=== PATIENT | female | born 2000 | race Hispanic/Latino ===

== ENCOUNTER 2021-03-04 08:44 | Inpatient (IN) | payer OTHER ==
[2021-03-04] MEDS ORDERED: Ringers Lactate 1,000 ML IV PRN (09:28)
[2021-03-04] MEDS ORDERED: METHYLERGONOVINE 0.2MG/ML AMP IM PRN (09:28)
--- OUTSIDE RECORDS SUMMARY | 2021-03-04 09:38 | XMS REPORT | Continuity of Care Document ---
:2000 Author Organization [facility] t Address [address] [place] [address] Care Team Providers Name Role Phone Nilton WILLOUGHBY Attending Clinician MAURY Attending Clinician Unavailable Lab, Fam Pob I Attending Clinician Unavailable Crystalne MANAGER SQL Attending Clinician Nicholas JORGENSEN Attending Clinician NEVAEH Attending Clinician Unavailable Payers Payer Name Policy Type Policy Number Effective Date Expiration Date Evens GUZMAN - [id number] 2019 00:00:00 [facility] [id number] [facility] COVID19 HRSA [id number] Problems Condition Condition Condition Status Onset Resolution Last Treating Co mments Source Name Details Category Date Date Treatment Clinician Date Pain in Pain in Disease Active 2019-03 [facility] joint joint 04-03 Ewa Gentry 00:00: of 00 Medicin e Allergies, Adverse Reactions, Alerts Allergy Allergy Status Severity Reaction(s) Onset Inactive Treating Comm ents Source Name Type Date Date Clinician NO KNOWN Drug Active [facility] ALLERGIE [facility] [place] [facility] Family History Family Member Diagnosis Comments Start Date Stop Date Source Sibling Family history of [facility] [place] thyroid disease Physician s Mother Family history of [facility] [place] diabetes mellitus Physici ans Mother Family history of [facility] [place] rheumatoid arthritis Phys icians Social History Social Habit Start Date Stop Date Quantity Comments Source Exposure to Not sure [facility] Colle audrey of SARS-CoV-2 (event) Medici ne Tobacco use and 2020-02-07 2020-02-07 Never used [facility] Co llege of exposure 00:00:00 00:00:00 Medicine Sex Assigned At [birth year] [facility] llege of 00:00:00 00:00:00 Medicine Smoking Status Start Date Stop Date Source Unknown if ever smoked [facility] Never smoker [facility] o f Medicine Medications Ordered Filled Start Stop Current Ordering Indication Dosage Frequency Signature Comments Components Source Medication Medication Date Date Medication? Clinician (SIG) Name Name norgestimat 2019-03 Yes [id number] TAKE 1 Calin e-ethinyl 1-16 TABLET BY Colle ge estradiol 00:00: MOUTH of (FEMYNOR) 00 EVERY DAY Medic in 0.25-35 e MG-MCG per tablet medroxyPROG Yes INJECT 1ML Univers ESTERone 08-30 INTRAMUSCU ity o f 150 mg/mL 00:00[place] syringe 00 Medical DIRECTED Branch medroxyPROG 2020- No INJECT 1ML [facility] ESTERone 08-30 INTRAMUSCU Krystina ege Acetate 00:00: 00:00 LARLY ONCE of (DEPO-PROVE 00 :00 Medicin RA) 150 DIRECTED e MG/ML Syringe nitrofurant Yes [id number] 100mg Take 1 Cap Calin oin, 6-02 by mouth Ewa Gentry macrocrysta 00:00: two times o f l-monohydra 00 daily. Medici n te, e (MACROBID) 100 MG capsule medroxyPROG 2020- No [id number] 150mg Inject 1 Calin ESTERone 6- 06-03 mL into Ewa Gentry (DEPO-PROVE 00:00: 04:59 the muscle of RA) 150 00 :00 once for 1 Medici n MG/ML dose. e injection Inject once every three months norgestimat Yes [id number] TAKE 1 [facility] e-ethinyl 3-02 TABLET BY Colle ge estradiol 00:00: MOUTH of (FEMYNOR) 00 EVERY DAY Medic in 0.25-35 e MG-MCG per tablet norgestimat 2019- Yes [id number] TAKE 1 [facility] e-ethinyl 3-02 TABLET BY Colle ge estradiol 00:00: MOUTH of (FEMYNOR) 00 EVERY DAY Medic in 0.25-35 e MG-MCG per tablet norgestimat 2020- No [id number] TAKE 1 [facility] e-ethinyl 3-05 04-16 TABLET BY Krystina ege estradiol 00:00: 00:00 MOUTH of (FEMYNOR) 00 :00 EVERY DAY Medic in 0.25-35 e MG-MCG per tablet norgestimat 2020- No TAKE 1 [facility] e-ethinyl 3- 08-14 TABLET BY ity of estradiol 00:00: 00:00 MOUTH [place] 0.25-35 00 :00 EVERY DAY Medical mg-mcg per Branch tablet FEMYNOR 2018-03 2020- No TAKE 1 Calin 0.25-35 2-10 05-23 TABLET BY Ira e MG-MCG per 00:00: 00:00 MOUTH of tablet 00 :00 EVERY DAY Medicin e Macrobid Macrobid 2019- No Ro 1 capsule Ekaterina 10-14 [place] [facility] 00:00: 00:00 00 :00 Immunizations Ordered Immunization Filled Immunization Date Status Commen ts Source Name Name Influenza Quad-PF 2020-02-07 Completed [facility] 00:00:00 of Medicine Fluarix 0.5 ml Fluarix 0.5 ml 2018-05-22 Nelda zhang quadrivalent- quadrivalent- 00:00:00 preservative free preservative free Influenza Quad-PF 2018-05-22 Completed [facility] 00:00:00 of Medicine Vital Signs Vital Name Observation Time Observation Value Comments Source Systolic blood 2020-02-07 114 mm[Hg] [facility] Darielag e pressure 20:32:00 of Medicine Diastolic blood 2020-02-07 62 mm[Hg] [facility] Dariela ge pressure 20:32:00 of Medicine Heart rate 2020-02-07 71 /min [facility] 20:32:00 of Medicine Body height 2020-02-07 157.5 cm [facility] 20:32:00 of Medicine Body weight 2020-02-07 61.236 kg [facility] 20:32:00 of Medicine BMI 2020-02-07 24.69 kg/m2 [facility] 20:32:00 of Medicine Oxygen saturation 2020-02-07 98 /min [facility] lege in Arterial blood 20:32:00 of Medicin e by Pulse oximetry Systolic blood 2019-08-24 100 mm[Hg] [facility] Colleg e pressure 18:21:00 of Medicine Diastolic blood 2019-08-24 62 mm[Hg] [facility] Colle ge pressure 18:21:00 of Medicine Heart rate 2019-08-24 68 /min [facility] 18:21:00 of Medicine Body temperature 2019-08-24 36.94 Trice [facility] Krystina ege 18:21:00 of Medicine Respiratory rate 2019-08-24 16 /min [facility] Krystina ege 18:21:00 of Medicine Body height 2019-08-24 157.5 cm [facility] 18:21:00 of Medicine Body weight 2019-08-24 64.683 kg [facility] 18:21:00 of Medicine BMI 2019-08-24 26.08 kg/m2 [facility] 18:21:00 of Medicine Oxygen saturation 2019-08-24 98 /min [facility] Col lege in Arterial blood 18:21:00 of Medicin e by Pulse oximetry Systolic blood 2019-05-24 94 mm[Hg] [facility] Colleg e pressure 20:09:00 of Medicine Diastolic blood 2019-05-24 60 mm[Hg] [facility] Colle ge pressure 20:09:00 of Medicine Heart rate 2019-05-24 49 /min [facility] 20:09:00 of Medicine Body temperature 2019-05-24 37 Trice [facility] Krystina ege 20:09:00 of Medicine Body height 2019-05-24 157.5 cm [facility] 20:09:00 of Medicine Body weight 2019-05-24 61.961 kg [facility] 20:09:00 of Medicine BMI 2019-05-24 24.98 kg/m2 [facility] 20:09:00 of Medicine Oxygen saturation 2019-05-24 99 /min [facility] Col lege in Arterial blood 20:09:00 of Medicin e by Pulse oximetry BP Systolic 2017-08-13 103 mm[Hg] [facility] 12:58:00 [place] Physician s BP Diastolic 2017-08-13 65 mm[Hg] [facility] 12:58:00 [place] Physician s Height 2017-08-13 157 cm [facility] 12:58:00 [place] Physician s Weight 2017-08-13 58.45 kg [facility] 12:58:00 [place] Physician s Body Mass Index 2017-08-13 23.71 kg/m2 [place] o f Calculated 12:58:00 [place] Physician s Temperature 2017-08-13 98.6 [degF] Method: [facility] 12:58:00 Tympanic [place] Physician s Heart Rate 2017-08-13 74 /min [facility] 12:58:00 [place] Physician s Respiration Rate 2017-08-13 18 /min Quality: Normal Universi ty of 12:58:00 [place] Physician s O2 SAT 2017-08-13 99 % Source: [facility] 12:58:00 [place] Physician s Procedures Procedure Date / Time Performing Clinician Source Performed TSH 2020-02-07 [facility] 2020-02-07 [facility] 2020-02-07 [facility]INAL[facility] DIPSTICK 2019-08-24 00:00:00 [facility] POCT URINE 2019-08-24 00:00:00 [facility] POCT URINE 2019-05-24 00:00:00 [facility] [QL] CBC (INCLUDES 2017-08-13 00:00:00 [facility] DIFF/PLT) Physicians [QL] CMP W/EGFR 2017-08-13 00:00:00 [facility] Physicians [QL] COMPLEMENT 2017-08-13 00:00:00 [facility] COMPONENT C3C Physicians [QL] COMPLEMENT 2017-08-13 00:00:00 [facility] COMPONENT C4C Physicians [QL] C-REACTIVE PROTEIN 2017-08-13 00:00:[address] [facility] Physicians [QL] RHEUMATOID FACTOR 2017-08-13 00:00:[address] [facility] Physicians [QL] URINALYSIS, 2017-08-13 00:00:00 [facility] COMPLETE W/REFLEX TO Physicians CULTURE [QL] ELSA PANEL, 2017-08-13 00:00:00 [facility] COMPREHENSIVE Physicians [QL] SED RATE BY 2017-08-13 00:00:00 [facility] MODIFIED SLAVA Physicians Plan of Care Planned Activity Planned Date Details Comments Source Future Scheduled HIV AB/AG 4TH GEN W Ordered: [facility] or Ewa Gentry Test RFLX [code = 29330-0] 05/24/2019 of Med icine Future Scheduled HEPATITIS C ANTIBODY Ordered: [facility] Test [code = 51957-2] 05/24/2019 of Medicine Future Scheduled HEPATITIS B SURFACE Ordered: [facility] or Ewa Gentry Test ANTIGEN [code = 05/24/2019 of Medicine 5196-1] Future Scheduled CT/GC Ordered: [facility] Krystina ege Test JOCY/TMA,CERVICAL/URETH 05/24/2019 of Me dicine RAL AND URINE [code = NOCPT] Future Scheduled RPR(DIAG) W RFLX Ordered: [facility] Test TITER/CONF [code = 05/24/2019 [place] [address]-8] Future Scheduled CBC W/AUTO DIFF WITH Ordered: [facility] Test PLATELETS [code = 05/24/2019 of Medicin e 24707-9] Future Scheduled COMPREHENSIVE Ordered: [facility] Col lege Test METABOLIC PANEL [code 05/24/2019 of Med icine = 05368-3] Future Scheduled TSH REFLEX TO FREE T4 Ordered: [facility] College Test [code = 3016-3] 05/24/2019 of Medicine Future Scheduled HEMOGLOBIN A1C [code = Ordered: [facility] Test 4548-4] 05/24/2019 of Medicine Future Scheduled TETANUS SHOT (ADULT) [place] [employer] Test [code = TETANUS SHOT of Medi cine (ADULT)] Future Scheduled HIV SCREENING [code = [facility] [employer] [employer] [facility] HIV SCREENING] of Medicine Future Scheduled FLU VACCINE > 6 MONTHS [facility] Test [code = FLU VACCINE > of Med icine 6 MONTHS] Future Scheduled URINE CULTURE [code = Ordered: [facility] Test 630-4] 08/24/2019 of Medicine Future Scheduled TETANUS SHOT (ADULT) [employer] [employer] Test [code = TETANUS SHOT of Medi cine (ADULT)] Future Scheduled BMI FOLLOW UP PLAN [facility] College Test [code = BMI FOLLOW UP of Med icine PLAN] Future Scheduled FLU VACCINE > 6 MONTHS [facility] Test [code = FLU VACCINE > of Med icine 6 MONTHS] Future Scheduled HPV VACCINE (1 - [facility] Test 2-dose series) [code = of Me dicine HPV VACCINE (1 - 2-dose series)] Future Scheduled TETANUS SHOT (ADULT) [employer] [employer] Test [code = TETANUS SHOT of Medi cine (ADULT)] Encounters Start End Encounter Admission Attending Care Care Encounter Source Date/Time Date/Time Type Type Clinicians Facility Department ID 2020-07-18 2020-07-18 Outpatient [facility] [id number] [facility] 09:51:56 14:37:41 Ira [place] of Medicin e 2020-02-07 2020-02-07 Office CallawaySHANNON mccollum [id number] [facility] 14:18:53 17:24:31 Visit Faith AMBULATOR 350.1.13.21 College Y 0.2.7.2.686 of [id number] [facility] elizabeth 300 e 2019-11-06 2019-11-06 Outpatient R [facility] [id number] Univers 12:20:00 12:20:00 itcm [facility] 2019-11-05 2019-11-05 Outpatient R MAURY, [facility] [id number] Univers 14:40:00 14:40:00 LATOYA cm [facility] 2019-11-05 2019-11-05 Laboratory Lab, [facility] Fam Pob I [facility] 1.2. [id number] Univers 14:19:22 14:39:22 Only Latoya [facility] 350.1.13.10 ity of [place] 4.2.7.2.686 Smooth as Professio [id number] Va dical [address] One 2019-11-05 2019-11-05 Laboratory Lab, [facility] [id number] 14:19:22 14:39:22 Only Teddy Jaimeb I Health 350.1.13.10 [place] 4.2.7.2.686 Professio [id number] nal [address] [place] [address] One 2019-08-24 2019-08-24 Office SHANNON Peterson [id number] [facility] 13:13:07 17:24:23 Visit Marlena AMBULATOR 350.1.13.21 College Y 0.2.7.2.686 of [id number] Medi elizabeth 300 e 2019-05-24 2019-05-24 Office SHANNON Peterson [id number] [facility] 13:34:05 16:38:52 Visit Marlena AMBULATOR 350.1.13.21 College Y 0.2.7.2.686 [id number] Medi elizabeth 300 e 2018-10-14 2018-10-14 Outpatient [facility](Victorina Hope( [id number] [facility] 11:02:00 11:02:00 [facility] 2018-10-06 2018-10-06 Outpatient [facility] [id number] [facility] 14:30:00 14:30:00 CLINIC [facility] 2018-06-03 2018-06-03 Outpatient [facility] [id number] [facility] 11:00:00 11:00:00 [facility] 2018-05-22 2018-05-22 Outpatient [facility] [id number] [place] 12:00:00 12:00:00 [facility] 2017-08-13 2017-08-13 DENIA Arriaga Pediatric [id number] Univers 12:30:00 12:30:00 t; GÓMEZ, Rheumatolog it y dwayne HERRING M.D. [facility] June MAGAÑA M.D. [facility] 2017-07-30 2017-07-30 DENIA Arriaga UTP [id number] Univers 13:30:00 13:30:00 t; Elías MAGAÑA M.D. [place] June MAGAÑA M.D. [facility] 2017-07-11 2017-07-11 [facility] [id number] [facility] 14:45:00 14:45:00 [facility] Results Test Description Test Time Test Comments Results Result Comments Source TSH 2020-02-08 10:08:46 Test Item Value Reference Range Interpretation Comme nts THYROID STIMULATING HORMONE See_Comment Unless Otherwise Indicated, (test code = 80012-6) All Te sting Performed At: [facility], [address] [place] [address] Laboratory Dire ctor: Chava Dey M.D. CLIA Number [id number] [place]. [id number] [Auto mated message] The system which ge nerated this result transmitted ref erence range: 0.400 - 4.100 UIU/ML. T he reference range was not used to int erpret this result as normal/abnormal . [facility] W/AUTO DIFF WITH [id number] 07:40:43 Test Item Value Reference Range Interpretation Comments WHITE BLOOD CELL COUNT See_Comment [Aut omated message] (test code = 96554-5) The sy stem which generated this result transmitted ref erence range: 3.5 - 10 .0 K/UL. The reference r zayda was not used to int erpret this result as normal/abnormal . RED BLOOD CELL COUNT See_Comment [Autom ated message] (test code = 11016-3) The sy stem which generated this result transmitted ref erence range: 3.80 - 5 .20 M/UL. The refer ence range was not u sed to interpret this result as normal/abnor mal. HEMOGLOBIN (test code = See_Comment [Au tomated message] 718-7) The system whic h generated this result transmitted ref erence range: 12.0 - 1 6.0 G/DL. The refer ence range was not u sed to interpret this result as normal/abnor mal. HEMATOCRIT (test code = 43.1 % 35-46 31408-9) MEAN CORPUSCULAR VOLUME 84.5 fL 80-99 (test code = 28062-4) MEAN CORPUSCULAR 29.0 PG 25-34 HEMOGLOBIN (test code = 66486-4) MEAN CORPUSCULAR See_Comment [Automated message] HEMOGLOBIN CONC (test The sy stem which code = 84743-6) generated th is result transmitted ref erence range: 31.0 - 3 6.0 G/DL. The refer ence range was not u sed to interpret this result as normal/abnor mal. RED CELL DISTRIBUTION 12.1 % 11.5-15 WIDTH (test code = 77665-3) NEUTROPHILS % (test 45.9 % 40-75 code = 88446-3) LYMPHOCYTES % (test 42.2 % 20-45 code = 30417-5) MONOCYTES % (test code 7.0 % 4-12 = 50066-4) EOSINOPHILS % (test 4.4 % 0-7 code = 86703-4) BASOPHILS % (test code 0.5 % 0-2 = 29721-3) PLATELET COUNT (test See_Comment Unless code = 94674-9) Otherwise In dicated, All Testing Per formed At: [facility], [address] [place] [address], [place] [address] Laboratory Dire ctor: Chava moctezuma M.D. CLIA Numb er [id number] [place]. [id number] [Auto mated message] The sy stem which generated this result transmit renita reference range : 130 - 400 K/UL. The r eference range was not u sed to interpret this result as normal/abnor mal. [facility] URINE [id number] 00:00:00 Test Item Value Reference Range Interpretation Comments TEST URINE (test code = Negative 97931) [facility] URINALYSIS [id number] 00:00:00 Test Item Value Reference Range Interpretation Comments COLOR UA (test code = 5778-6) Yellow YELLOW/STRAW CLARITY UA (test code = 44225-4) Clear CLEAR GLUCOSE UA (test code = 5792-7) Negative NEGATIVE BILIRUBIN UA (test code = 5770-3) Negative NEGATIVE KETONES UA (test code = 49684-6) Negative NEGATIVE SPECIFIC GRAVITY UA (test code = 1.005-1.035 5811-5) BLOOD UA (test code = 5794-3) Large 3+ NEGATIVE PH UA (test code = 5803-2) 5-9 PROTEIN UA (test code = 5804-0) Negative NEGATIVE UROBILINOGEN UA (test code = 0.2 E.U./dL NORMAL MG/DL 5818-0) LEUKOCYTE ESTERASE UA (test code Negative NEGATIVE = 5799-2) NITRITE UA (test code = 5802-4) Negative NEGATIVE REDUCING SUBSTANCES URINE (test none NEGATIVE code = 90179-9) [facility] URINE [id number] 00:00:00 Test Item Value Reference Range Interpretation Comments TEST URINE (test code = Negative 51170) [facility] URINE [id number] 00:00:00 Test Item Value Reference Range Interpretation Comments TEST URINE (test code = Negative 69606) [facility]] CBC (INCLUDES DIFF/PLT)2017-08-13 13:56:01 Test Item Value Reference Range Interpretation Comments WBC (test code = 6690-2) 4.8 {K/CMM} 3.7-10.4 RBC (test code = 789-8) 4.60 {M/CMM} 4.20-5.40 Hgb (test code = 718-7) 13.2 g/dl 12.0-16.0 Hct (test code = 65155-4) 39.6 % 36.0-48.0 MCV (test code = 787-2) 86.2 fL 80.0-98.0 MCH (test code = 785-6) 28.8 pg 27.0-31.0 MCHC (test code = 786-4) 33.4 g/dl 32.0-36.0 RDW (test code = 788-0) 13.4 % 11.5-14.5 Platelet (test code = 71484-3) 256 {K/CMM} 133-450 Mean Platelet Volume (test code 8.0 fL 7.4-10.4 = 27694-0) [facility] Physicians[[facility]] [id number] 13:56:01 Test Item Value Reference Range Interpretation Comments Segmented Neutrophils (test code 51.1 % 45.0-75.0 = 64195-5) Monocytes (test code = 22078-3) 7.9 % 2.0-12.0 Lymphocytes (test code = 98949-9) 38.7 % 20.0-40.0 Eosinophils (test code = 23963-7) 1.6 % 0.0-4.0 Basophils (test code = 706-2) 0.7 % 0.0-1.0 Segs-Bands # (test code = 2.4 {K/CMM} 1.5-8.1 11363-6) Lymphocytes # (test code = 1.9 {K/CMM} 1.0-5.5 90903-1) Monocytes # (test code = 93407-3) 0.4 {K/CMM} 0.0-0.8 Eosinophils # (test code = 0.1 {K/CMM} 0.0-0.5 49705-9) [facility]] URINALYSIS, COMPLETE W/REFLEX TO CULTURE 2017-08-13 13:56:01 Test Item Value Reference Range Interpretation Comments UA Turbidity (test code = 95739-4) Clear Clear UA Spec Grav (test code = 5810-7) 1.012 <=1.030 UA pH (test code = 5803-2) 5.0 5.0-8.0 UA Protein (test code = 83913-9) Negative Negative UA Glucose (test code = 22603-2) Negative Negative UA Ketones (test code = 32987-6) Negative Negative UA Bili (test code = 5770-3) Negative Negative UA Blood; Abnormal (test code = Small Negative A 5794-3) UA Nitrite (test code = 5802-4) Negative Negative UA Leuk Est (test code = 5799-2) Negative Negative UA RBC (test code = 65581-3) 1 {/HPF} 0-2 UA WBC (test code = 54879-1) 1 {/HPF} 0-5 UA Bacteria (test code = 92836-5) Occasional None Seen UA Mucus (test code = 8247-9) Few None Seen UA Sq Epi (test code = 09540-9) Occasional Few UA Color (test code = 5778-6) Ltyellow UROBILINOGEN (test code = 35805-7) <=1.0 0.1-1.0 [facility]] SED RATE BY MODIFIED [id number] 13:56:01 Test Item Value Reference Range Interpretation Comments Sedimentation Rate (test code = 3 {mm/hr} 0-20 17888-8) [facility]] COMPLEMENT COMPONENT [id number] 13:56:01 Test Item Value Reference Range Interpretation Comments C3 Complement (test code = 4485-9) 132 mg/dl 88-201 [facility]] COMPLEMENT COMPONENT [id number] 13:56:01 Test Item Value Reference Range Interpretation Comments C4 Complement (test code = 4498-2) 22 mg/dl 16-47 [facility]] CMP [id number] 13:56:01 Test Item Value Reference Range Interpretation Comments Sodium Level (test 140 {mEq/l} 135-145 code = 2951-2) Potassium Level 3.6 {mEq/l} 3.5-5.1 (test code = 2823-3) Chloride Level (test 105 {mEq/l} 95-109 code = 2075-0) Carbon Dioxide (test 26 {mEq/l} 24-32 code = 2028-9) AGAP (test code = 12.6 {mEq/l} 10.0-20.0 56545-5) Glucose Lvl (test 99 mg/dl 70-99 Adult refe rence range code = 2345-7) values reflec t the clinical guidel inesof the [place] [employer]. Creatinine Lvl (test 0.60 mg/dl 0.50-1.40 code = 2160-0) Blood Urea Nitrogen 9 mg/dl 7-22 (test code = 3094-0) BUN/Creatinine Ratio 15 6-25 (test code = 3097-3) Total Protein (test 7.4 g/dl 6.4-8.4 code = 2885-2) Albumin Lvl (test 4.3 g/dl 3.5-5.0 code = 1751-7) Globulin (test code 3.1 g/dl 2.7-4.2 = 07992-0) A/G Ratio (test code 1.4 0.7-1.6 = 1759-0) Calcium Level Total 9.0 mg/dl 8.5-10.5 (test code = 19953-6) ALT (test code = 62 u/l 0-65 1743-4) AST; Above High 44 u/l 0-37 Threshold (test code = 11311-3) Bili Total (test 0.6 mg/dl 0.2-1.3 code = 1975-2) Alk Phos (test code 62 u/l 39-136 = 1783-0) eGFR (test code = See Comment No height is recorded 94321-4) for this patien t; estimated GFR c annot be calculated. [facility]] RHEUMATOID [id number] 13:56:01 Test Item Value Reference Range Interpretation Comments Rheumatoid Factor Quantitative (test <10 0-20 code = 83730-6) [facility]] C-REACTIVE [id number] 13:56:01 Test Item Value Reference Range Interpretation Comments CRP (test code = CRP) <2.9 <=2.9 [facility]] ELSA PANEL, [id number] 13:56:01 Test Item Value Reference Range Interpretation Comments Antinuclear Antibody Screen (test Negative Negative code = 06902-5) [facility] PhysiciansTobacco Use [id number] 12:30:00 Test Item Value Reference Range Interpretation Comments Completed (test code = Completed) DONE [facility] Physicians
[2021-03-04] MEDS ORDERED: Ringers Lactate 1,000 ML IV SCH (10:00)
[2021-03-04 10:45] LABS: Urine Appearance CLEAR (Clear); Urine Bilirubin NEGATIVE (Negative); Urine Blood 1+ (Negative); Urine Color YELLOW (Yellow); Urine Glucose NEGATIVE (Negative); Urine Protein NEGATIVE (Negative); Urine pH 6.5 (5.0-7.0)
[2021-03-04 10:48] LABS: Absolute Lymphocytes (CBC) 1.7 K/uL (0.7-4.9); Basophils % 0.2 % (0-1.3); Hematocrit 37.8 % (36.0-45.0); Lymphocytes % 19.6 % (15.3-44.8); MPV 7.9 fL (7.6-11.3); RBC Red Blood Cell Count 4.29 M/uL (3.86-4.86)
[2021-03-04] MEDS ORDERED: BUTORPHANOL 1 MG/ML INJ IV PRN (10:49)
[2021-03-04] MEDS ORDERED: PROMETHAZINE INJ 25 MG/ML AMP IV PRN (10:49)
[2021-03-04] MEDS ORDERED: FENTANYL CITR 100 MCG/2 ML IV ONE (10:56)
[2021-03-04] MEDS ORDERED: 0.2% ROPIVACAINE (200 MG/100 ML) BAG EP ONE (10:59)
[2021-03-04] MEDS ORDERED: OXYTOCIN/LR 20 UNIT/1,000 ML BAG IV SCH (11:00)
[2021-03-04] MEDS ORDERED: CARBOPROST TROME 250 MCG/ML IM ONE (11:01)
[2021-03-04] MEDS ORDERED: LIDOCAINE 1% MPF 30 ML VIAL SQ ONE (11:01)
[2021-03-04 11:34] LABS: Urine Microscopic Reflex ORDER UMIC
[2021-03-04 11:46] LABS: Urine Bacteria <20 /HPF (<20); Urine RBC <5 /HPF (NONE SEEN)
[2021-03-04 13:30] VITALS: BMI 31.1
[2021-03-04] MEDS ORDERED: ROPIVACAINE HCL 20 ML ONE (15:52)
[2021-03-04] MEDS ORDERED: ROPIVACAINE HCL 0.2% 20ML AMP EP ONE (15:53)
[2021-03-04] MEDS ORDERED: miSOPROStoL 100 MCG TAB ONE (18:43)
[2021-03-04] MEDS ORDERED: Oxycodone HCl/Acetaminophen 1 TAB TAB PO PRN (23:07)
[2021-03-05] MEDS: IBUPROFEN 200 MG TAB PO PRN ×4 (00:09→18:31)
[2021-03-05] MEDS ORDERED: CEFAZOLIN/NS 1gm 1 GM/50 ML BAG ONE (01:42)
[2021-03-05] MEDS: CEFAZOLIN/NS 1gm 1 GM/50 ML BAG IVPB SCH ×3 (01:54→11:59)
--- NOTE | 2021-03-05 02:21 | DN ---
Date of Procedure: 03/04/2021 Surgeon: Maurice Lofton Covering Physician: Dr. Maurice Lofton. Final Diagnoses: 1.Intrauterine 39 weeks of gestation, delivered. 2.Normal vaginal delivery. 3.Single live . Procedure Performed: Normal vaginal delivery with midline episiotomy and third-degree extension repa ir. Total Ebl: 450 cc. Anesthesia: Epidural. Findings: No complications. Description Of Procedure: Karli Mathias is a 39 weeks, G1, P0 female in labor, who was ad mitted at 2 cm with artificial rupture of membranes. Clear amniotic fluid. Contractions every 2-3 o ccasionally, 2-5 minutes apart. Category 1 heart tones. Maternal and condition is stabl e. Patient requested epidural regional anesthesia for comfort and she was comfortable throughout. A rtificial rupture of membranes after 11:00 a.m. and her labor progressed into the early afternoon by 2:00 p.m., she was in active phase of labor. I came to the hospital for evaluation, and her labor fu rther progressed to 5 cm and quickly to 10 cm hours later. Patient had tremendous amount of urge to push; however, at this time right now the station was still high up, therefore she was asked to labor down the baby's head during the next 1-2 hours. Finally, baby's head has descended and getting read y for second stage of labor. Her legs were placed up in the stirrups. Vaginal area was prepped and washed by using Betadine solution, then she was draped in a sterile fashion. With maternal pushes, m idline episiotomy performed and finally the head delivered. The delivery of the head was with help o f a ritgen maneuver with delivery of the head and delivery of the shoulders, body and delivery finall y completed at 2126 hours. Cord was clamped and cut. The baby passed on to the nursing staff. Nose and mouth were well bulb suctioned. Cord blood obtained. Placenta was delivered manually. The mid line episiotomy revealed a third-degree extension, therefore 2-0 chromic suture used to first repair the third-degree extension followed by the usual episiotomy repair 2-0 chromic suture. Total EBL was 450 cc and she delivered a male baby, weighed 9 pounds 2 ounces, length 28.5 inches long. No compli cations. BW/MODL Voice ID: [id number] Report ID: [id number]
[2021-03-05] MEDS ORDERED: CEFAZOLIN SODIUM 1 GM/VIAL ONE (06:35)
[2021-03-05] MEDS ORDERED: NA CHLORIDE 0.9% 50 ML ONE (06:36)
--- NOTE | 2021-03-05 07:30 | PN ---
The patient is now afebrile. Lochia is minimal. She seems to be doing quite well. Had episiotomy w ith third-degree extension. Full discussion about how to take care of this. We will observe her tod ay, probably send her home tomorrow. We will keep the IVs going and antibiotics until she has gone 2 4 hours without a fever. Full talk given. The baby is doing quite well. Probably let he r go home sometime early tomorrow. LINDA/DEYVI Voice ID: [id number] Report ID: [id number]
[2021-03-05] MEDS: DOCUSATE NA 100 MG CAP PO SCH ×2 (08:46→21:00)
[2021-03-06] MEDS: IBUPROFEN 200 MG TAB PO PRN (00:17)
[2021-03-06 02:00] LABS: RPR (Rapid Plasma Reagin) NON-REACT (NON-REACT)
--- NOTE | 2021-03-06 07:26 | DS ---
The patient is now afebrile more than 24 hours. Her initial temperature spike I think is probably du e to dehydration, shivering, or even the epidural, but no signs of infection. She delivered at 39 we eks of a 9-pound 2-ounce male , Apgars 9 and 10. Midline episiotomy, which extended to a third -degree laceration, repaired by Dr. Lofton. 450 cc blood loss. She was given Cytotec 200 mcg 4 tablet s rectally. Since then, lochia has been minimal. She is Rh positive, immune to Rubella. Negative s trep. Immunizations again discussed. She will take Motrin for analgesia. She has no post epidural problems. Final Diagnoses: Term intrauterine . Vaginal delivery. Third-degree laceration. Mild gambell rine hypotonus. SARAHC/MODL Voice ID: [id number] Report ID: [id number]
[2021-03-06 08:13] VITALS: BP 109/48; TEMP 97.6; O2SAT 99
[2021-03-06] MEDS ORDERED: INFLUENZA VACCINE (for 6+ mo) 0.5 ML DOSE IMVAC ONE (10:30)
[2021-03-08 18:43] LABS: HBsAG Nonreactive (Nonreactive)
== END 2021-03-06 09:30 | disposition home or self-care (01) | DRG 768 ==
LOC: L&D 08:44 → 2ND-WC 09:35
PROVIDERS: ADMIT Specialist; ATTEND Specialist
PROC: 10907ZC Drainage of Amniotic Fluid, Therapeutic from Products of Conception, Via Natural or Artificial Opening (ICD-10-PCS; principal; 2021-03-04)
PROC: 0DQR0ZZ Repair Anal Sphincter, Open Approach (ICD-10-PCS; 2021-03-04)
PROC: 10E0XZZ Delivery of Products of Conception, External Approach (ICD-10-PCS; 2021-03-04)
PROC: 0W8NXZZ Division of Female Perineum, External Approach (ICD-10-PCS; 2021-03-04)
DX: O70.20 Third degree perineal laceration during delivery, unspecified (principal); Z37.0 Single live birth; O75.2 Pyrexia during labor, not elsewhere classified; O62.2 Other uterine inertia; Z3A.39 39 weeks gestation of pregnancy; Z23 Encounter for immunization; Z20.822 Contact with and (suspected) exposure to COVID-19
CPT/HCPCS: 36415; 81003; 81015; 85025; 86592; 86850; 86900; 86901; 87086; 87088; 87340; 90471; 99218; G0433; J0595; J0690; J2175; J2210; J2550; J2590; J2795; J3010; J7120; Q2035; U0003